=== PATIENT | female | born 1940 | race Caucasian/White ===

== ENCOUNTER 2022-07-07 17:02 | Emergency (ER) | payer MEDICARE, BC ==
[~2022-07-07] VITALS: Ht 160 cm; Wt 68.2 kg
[~2022-07-07 17:02] MED LIST: ALBU6.7H14 INH; CELE-193 PO; DULO-31 PO; LEVO25TA2 PO; LEVO750T68 PO; LOP12.5T PO; PRED10TA23 PO; RAMI5CAP65 PO; ROPI0.5T4 PO; SIMV-42 PO
[2022-07-07 17:25] LABS: BASOPHILS % (AUTO) 0.1 % (0-1); EOSINOPHILS % (AUTO) 0 % (0-6); HEMATOCRIT 42.2 % (35.0-45.0); HEMOGLOBIN 14.3 g/dl (12.0-16.0); LYMPHOCYTES # (AUTO) 0.4 X10'3 (1.1-4.8); LYMPHOCYTES % (AUTO) 4.4 % (21-51); MEAN CORPUSCULAR HGB CONC 33.9 g/dL (33.0-36.5); MEAN CORPUSCULAR VOLUME 91.4 FL (78-98); MEAN PLATELET VOLUME 7.8 FL (7.4-10.4); MONOCYTES # (AUTO) 0.1 X10'3 (0-0.9); MONOCYTES % (AUTO) 1.3 % (2-12); NEUTROPHILS # (AUTO) 8.8 X10'3 (1.8-7.7); NEUTROPHILS % (AUTO) 94.2 % (42-75); PLATELET COUNT 345 X10'3 (140-440); RED BLOOD COUNT 4.62 X10'6 (4.20-5.60); RED CELL DISTRIBUTION WIDTH 14.8 % (11.5-14.5); WHITE BLOOD COUNT 9.3 X10'3 (4.5-11.0)
[2022-07-07 17:33] LABS: ALANINE AMINOTRANSFERASE 19 U/L (12-78); ALBUMIN 3.1 G/DL (3.4-5.0); ALBUMIN/GLOBULIN RATIO 1.1 (1.1-1.5); ALKALINE PHOSPHATASE 65 IU/L (46-116); ANION GAP 5 (8-16); ASPARTATE AMINO TRANSFERASE 16 U/L (10-37); BILIRUBIN,TOTAL 0.5 MG/DL (0.1-1.0); BLOOD UREA NITROGEN 20 MG/DL (7-18); BUN/CREATININE RATIO 33.9 (10.0-20.0); CALCIUM 7.3 MG/DL (8.5-10.1); CHLORIDE 102 MMOL/L (99-107); CREATININE 0.59 MG/DL (0.40-0.90); GLUCOSE 130 MG/DL (70-104); POTASSIUM 4.2 MMOL/L (3.5-5.1); SODIUM 136 MMOL/L (135-145); TOTAL CARBON DIOXIDE 29.2 MMOL/L (24-32); TOTAL PROTEIN 5.8 G/DL (6.4-8.2); eGFR > 90 ML/MIN
[2022-07-07 17:40] VITALS: BP 111/62
[2022-07-07] MEDS ORDERED: ipratropium/albuterol 3ml nebule NEB ONE (17:45)
--- NOTE | 2022-07-07 18:45 | NUR ---
rt at bedside
--- NOTE | 2022-07-07 19:07 | NUR ---
iv dc'd pt being discharged
== END 2022-07-07 19:09 | disposition home or self-care (01) ==
LOC: ER 17:02
DX: J44.9 Chronic obstructive pulmonary disease, unspecified (principal); R53.83 Other fatigue; R53.1 Weakness; I10 Essential (primary) hypertension; Z79.899 Other long term (current) drug therapy
CPT/HCPCS: 36415; 71045; 80053; 83880; 84484; 85025; 93005; 94640; 94760; 99285

== ENCOUNTER 2022-07-09 13:39 | Emergency (ER) | payer MEDICARE, BC ==
[~2022-07-09] VITALS: Ht 160 cm; Wt 68.0 kg
--- NOTE | 2022-07-09 14:22 | NUR ---
PT DENIES COMPLAINT AT THIS TIME. BREATHING IS BETTER NOW THAT SHE IS BACK ON O2 - MD AT BEDSIDE
[2022-07-09 14:29] LABS: BASOPHILS % (AUTO) 0.1 % (0-1); EOSINOPHILS % (AUTO) 0.2 % (0-6); HEMATOCRIT 45.6 % (35.0-45.0); LYMPHOCYTES # (AUTO) 0.9 X10'3 (1.1-4.8); LYMPHOCYTES % (AUTO) 5.5 % (21-51); MEAN CORPUSCULAR HEMOGLOBIN 30.3 PG (27.0-31.0); MEAN CORPUSCULAR VOLUME 91.8 FL (78-98); MEAN PLATELET VOLUME 8.3 FL (7.4-10.4); MONOCYTES # (AUTO) 0.3 X10'3 (0-0.9); MONOCYTES % (AUTO) 1.8 % (2-12); NEUTROPHILS # (AUTO) 14.7 X10'3 (1.8-7.7); NEUTROPHILS % (AUTO) 92.4 % (42-75); PLATELET COUNT 411 X10'3 (140-440); RED BLOOD COUNT 4.96 X10'6 (4.20-5.60); RED CELL DISTRIBUTION WIDTH 15.3 % (11.5-14.5); WHITE BLOOD COUNT 15.9 X10'3 (4.5-11.0)
[2022-07-09 14:32] LABS: ALANINE AMINOTRANSFERASE 17 U/L (12-78); ALBUMIN 3.4 G/DL (3.4-5.0); ALBUMIN/GLOBULIN RATIO 1.1 (1.1-1.5); ALKALINE PHOSPHATASE 75 IU/L (46-116); ANION GAP 5 (8-16); ASPARTATE AMINO TRANSFERASE 15 U/L (10-37); BILIRUBIN,TOTAL 0.3 MG/DL (0.1-1.0); BLOOD UREA NITROGEN 20 MG/DL (7-18); BUN/CREATININE RATIO 34.5 (10.0-20.0); CALCIUM 8.1 MG/DL (8.5-10.1); CHLORIDE 99 MMOL/L (99-107); CREATININE 0.58 MG/DL (0.40-0.90); GLUCOSE 109 MG/DL (70-104); POTASSIUM 4.7 MMOL/L (3.5-5.1); SODIUM 135 MMOL/L (135-145); TOTAL CARBON DIOXIDE 31.5 MMOL/L (24-32); TOTAL PROTEIN 6.4 G/DL (6.4-8.2); eGFR > 90 ML/MIN
--- NOTE | 2022-07-09 15:28 | NUR ---
PT PASSED GAIT TEST. PT IS ABLE TO AMBULATE WITH HER WALKER WITHOUT ASSISTANCE.
--- NOTE | 2022-07-09 15:42 | NUR ---
RN PERFORMED GAIT TEST WITH PT WITH O2 SAT MONITOR. AT REST O2 96% 3L/AMBULATING 92% 3L. RN WILL NOTIFY DR BENTON.
--- NOTE | 2022-07-09 17:07 | NUR ---
RN SPOKE WITH PT DAUGHTER KALPANA AND NOTIFIED HER THAT HER MOTHER IS AT THE ED. KALPANA WILL COME TO THE HOSPITAL AND BRING PT PORTABLE O2 TANK IN THE EVENT THAT PT IS DISCHARGED.
[2022-07-09 17:52] VITALS: BP 139/83
--- NOTE | 2022-07-09 17:53 | NUR ---
pt daughter eugene brought o2 tank for dc and tank is empty. rn will notify dr singletary and see how portable o2 can be obtained.
--- NOTE | 2022-07-09 18:01 | NUR ---
PT GETS O2 THROUGH [facility] BUT THEY ARE CLOSED. PT DAUGHTER STATES THAT PT HOME IS 10 MINS AWAY. RN NOTIFIED DR BENTON. PER DR BENTON CK PT SAT ON RM AIR AT REST AND WHILE STANDING.
--- NOTE | 2022-07-09 18:09 | NUR ---
PER DR BENTON PT MAY BE DISCHARGED D/T SAT IS MAINTAINED ON RM AIR AND PT DAUGHTER IS DRIVING HER HOME LESS THAN 10 MINS AWAY AND WILL WHEEL HER IN THE HOUSE WITH HER WALKER. DAUGHTER STATED THAT PT DOES HAVE O2 AT HOME.
== END 2022-07-09 18:12 | disposition home or self-care (01) ==
LOC: ER 13:40
DX: J45.901 Unspecified asthma with (acute) exacerbation (principal); R06.02 Shortness of breath
CPT/HCPCS: 36415; 71045; 80053; 83880; 84484; 85025; 93005; 99285; A4615

== ENCOUNTER 2022-07-14 22:58 | Emergency (ER) | payer MEDICARE, BC ==
[~2022-07-14] VITALS: Ht 162.6 cm; Wt 68.0 kg
[~2022-07-14 22:58] MED LIST changes: -LEVO750T68 PO
--- NOTE | 2022-07-15 00:04 | NUR ---
91-95% SPO2 ON ROOM AIR. PT STATES USES OXYGEN 3L NC AT NIGHT
[2022-07-15 00:23] LABS: BASOPHILS # (AUTO) 0.1 X10'3 (0-0.2); BASOPHILS % (AUTO) 0.4 % (0-1); EOSINOPHILS # (AUTO) 0.2 X10'3 (0-0.9); EOSINOPHILS % (AUTO) 1.4 % (0-6); HEMATOCRIT 44.9 % (35.0-45.0); HEMOGLOBIN 14.9 g/dl (12.0-16.0); LYMPHOCYTES # (AUTO) 3.9 X10'3 (1.1-4.8); LYMPHOCYTES % (AUTO) 25.6 % (21-51); MEAN CORPUSCULAR HEMOGLOBIN 30.7 PG (27.0-31.0); MEAN CORPUSCULAR HGB CONC 33.3 g/dL (33.0-36.5); MEAN CORPUSCULAR VOLUME 92.2 FL (78-98); MEAN PLATELET VOLUME 7.5 FL (7.4-10.4); MONOCYTES % (AUTO) 6.7 % (2-12); NEUTROPHILS % (AUTO) 65.9 % (42-75); PLATELET COUNT 404 X10'3 (140-440); RED BLOOD COUNT 4.87 X10'6 (4.20-5.60); RED CELL DISTRIBUTION WIDTH 15.1 % (11.5-14.5); WHITE BLOOD COUNT 15.3 X10'3 (4.5-11.0)
[2022-07-15 00:38] LABS: ALANINE AMINOTRANSFERASE 18 U/L (12-78); ALBUMIN 3.4 G/DL (3.4-5.0); ALBUMIN/GLOBULIN RATIO 1.2 (1.1-1.5); ALKALINE PHOSPHATASE 77 IU/L (46-116); ANION GAP 2 (8-16); ASPARTATE AMINO TRANSFERASE 15 U/L (10-37); BILIRUBIN,TOTAL 0.3 MG/DL (0.1-1.0); BLOOD UREA NITROGEN 12 MG/DL (7-18); BUN/CREATININE RATIO 21.1 (10.0-20.0); CALCIUM 7.8 MG/DL (8.5-10.1); CHLORIDE 99 MMOL/L (99-107); CREATININE 0.57 MG/DL (0.40-0.90); GLUCOSE 90 MG/DL (70-104); POTASSIUM 4.2 MMOL/L (3.5-5.1); SODIUM 134 MMOL/L (135-145); TOTAL CARBON DIOXIDE 33.4 MMOL/L (24-32); TOTAL PROTEIN 6.3 G/DL (6.4-8.2); eGFR > 90 ML/MIN
--- NOTE | 2022-07-15 02:33 | NUR ---
pt ambulated to restroom with tech
[2022-07-15 02:43] VITALS: BP 145/90
== END 2022-07-15 02:42 | disposition home or self-care (01) ==
LOC: ER 22:59
DX: R06.09 Other forms of dyspnea (principal); J44.9 Chronic obstructive pulmonary disease, unspecified; E78.00 Pure hypercholesterolemia, unspecified; I10 Essential (primary) hypertension; Z79.899 Other long term (current) drug therapy
CPT/HCPCS: 36415; 71045; 80053; 83880; 84484; 85025; 93005; 99285

== ENCOUNTER 2022-07-18 20:48 | Emergency (ER) | payer MEDICARE, BC ==
[~2022-07-18] VITALS: Ht 154.9 cm; Wt 68.0 kg
[2022-07-18 21:16] VITALS: BP 150/68
== END 2022-07-18 22:40 | disposition left against medical advice (07) ==
LOC: ER 20:49
DX: R06.02 Shortness of breath (principal); Z53.21 Procedure and treatment not carried out due to patient leaving prior to being seen by health care provider
CPT/HCPCS: 99281